=== PATIENT | female | born 1945 | race Caucasian/White ===

== ENCOUNTER 2017-10-01 05:30 | Day surgery (SDC) | payer OTHER, BC ==
[~2017-10-01] VITALS: Ht 160 cm; Wt 61.2 kg
--- NOTE | ~2017-10-01 | O ---
[facility] [place] [address] OPERATIVE REPORT Name: MANUEL MONET Room #: DEP [facility] M..#: [id number] Admission: 10/01/17 Attend Phys: Maverick Soto MD Discharge: 10/01/17 Date of : 45 Report #: [id number] THIS REPORT FOR: //name// CC: Dr. Kala Soto DATE OF SERVICE: 10/01/[address] Maverick Soto and Dr. Kala Aparicio at [facility] and Dr. Lakisha Albrecht. PREOPERATIVE DIAGNOSIS: Ductal carcinoma in situ of the right breast. POSTOPERATIVE DIAGNOSIS: Ductal carcinoma in situ of the right breast. PROCEDURE: Reexcision lumpectomy of right breast ductal carcinoma in situ. SURGEON: Maverick Soto M.D. ANESTHESIA: Local IV sedation. DESCRIPTION OF PROCEDURE: The patient was brought to the operating room and placed on operative table in the supine position. Sequential compression devices were in place for DVT prophylaxis. There was no indication for preoperative antibiotics. The patient underwent IV sedation and was prepped and draped in a sterile fashion. Skin and subcutaneous tissue around the right breast circumareolar skin incision was performed using 0.5% Marcaine and 1% Xylocaine in a 1:1 mixture. A skin incision was performed through the previous incision scar using #15 scalpel blade. Hemostasis obtained using electrocautery. Dissection was carried down through the subcutaneous tissue using the #15 blade knife and the Metzenbaum scissors. The area in question was carefully and completely dissected free around the previous lumpectomy site. Meticulous hemostasis was obtained using the electrocautery. The specimen was removed and oriented for the pathologist and given to the pathologist in the operating room for orientation and permanent study. The specimen was oriented with a double strand chromic suture being inferior, single strand chromic suture being medial and the nylon suture being anterior superficial. The specimen was placed in formalin and given to the pathologist in the operating room. Meticulous hemostasis was checked and obtained in the area using the electrocautery. Deep and superficial subcutaneous tissue was then reapproximated using simple interrupted 2-0 chromic sutures and the skin then closed with a running 4-0 subcuticular Vicryl stitch. The wound was then dressed with Mastisol, 1/2-inch Steri-Strips cut in half, Telfa, 4 x 4 gauze, sponge and tape. The patient was then awakened from the IV sedation, taken to [address] [address] OPERATIVE REPORT Name: MANUEL MONET Room #: DEP [facility] M.Colleen#: [id number] Admission: 10/01/17 Attend Phys: Maverick Soto MD Discharge: 10/01/17 Date of : 45 Report #: [id number] recovery room in good condition. Estimated blood loss was approximately 20 mL and the patient tolerated the procedure well. All sponge, lap and instrument counts correct x 2. <ELECTRONICALLY SIGNED> By: Maverick Soto MD 10/07/17 1545 [id number] 1703 Maverick Soto MD /nt
--- NOTE | ~2017-10-01 | S ---
[facility] [place] [address] SURGICAL PATH RPT PROCEDURE Name: UMM MONET Room #: DEP [facility] M.R.#: [id number] Admission: 10/01/17 Date of : 45 Discharge: 10/01/17 Report #: [id number] Path Case #: [id number] PATHOLOGY REPORT COLLECTION DATE: 10/01/2017 RECEIVED DATE: 10/01/2017 SUBMITTING PHYS: Dr. Maverick Soto OTHER PHYS: Dr. Kala Aparicio SPECIMEN(S) RECEIVED: A.R breast nylon ant/sup margin single med, double inf * * * * * * * * * * * * FINAL DIAGNOSIS: Breast, right breast, reexcision lumpectomy: - Extensive biopsy site changes identified. - Background of benign breast ducts with dilated ducts, usual ductal hyperplasia and focal columnar cell change. - Negative for atypia, carcinoma in situ or malignancy. - New margins of resection widely free. (IUV:rlm; 10/04/2017) PATHOLOGIST: Nelly Hawley M.D. REPORT ELECTRONICALLY SIGNED BY: Nelly Hawley M.D. DATE/TIME: 10/04/2017 15:10 * * * * * * * * * * * * GROSS PATHOLOGY: Received in formalin labeled "Umm Monet, right breast reexcision lumpectomy double strand inferior, nylon anterior superficial margin, single strand medial" is a 7 g oriented lumpectomy specimen which measures 2.7 cm from medial to lateral, 2.5 cm from superior to inferior, and 2.1 cm from anterior to posterior. The specimen is inked as follows: Superior-red, inferior-blue, anterior/superficial-green, posterior-black, medial-yellow, lateral-orange. The specimen is serially sectioned from lateral to medial into 8 slices to reveal a null-white diffusely fibrotic cut surface, possibly consistent with a previous biopsy or lumpectomy site. A definitive mass is not grossly identified. The specimen is submitted entirely as follows: A1 slice 1, medial margin, serially sectioned A2 slice 2 A3 slice 3 A4 slice 4 A5 slice 5 A6 slice 6 [address] [place] [address] SURGICAL PATH RPT PROCEDURE Name: UMM MONET Room #: DEP [facility]..#: [id number] Admission: 10/01/17 Date of : 45 Discharge: 10/01/17 Report #: [id number] Path Case #: [id number] A7 slice 7 A8 slice 8, lateral margin, serially sectioned The specimen is removed from the patient at 1435 and placed in formalin at 1438 on October 01, 2017. The specimen is removed from formalin at 1925 on October 03, 2017. [place] [place] CLINICAL HISTORY: Right breast cancer. INITIAL CPT CODE(S): A; 20389 Professional services performed by [facility] at [facility] [place] [address] [address] Technical services performed by [facility] at [address] [place] [address]., [address], [place] [address]. [facility] [address] [place] [address] PHONE: [phone] DIRECTOR: Justin Matthews M.D. * * * END OF REPORT * * *
[~2017-10-01 05:30] MED LIST: ASPIR 8181 MG PO; CLARITIN10 MG PO; CO Q-10100 MG PO; COZAAR 25 MG TA25 M2 PO; ESTRACE0.5 MG PO; FISH OIL 1,001000 M2 PO; LIPITOR10 MG PO; OMEPRAZOLE40 MG PO; SYNTHROID112 MCG PO; VITAMIN B-12500 MCG PO; VITAMINC500 PO
[2017-10-01 12:30] VITALS: BP 131/53
[2017-10-01 15:24] VITALS: BP 131/53
== END 2017-10-01 15:55 | disposition home or self-care (01) ==
LOC: TBA 05:30 → OR 05:30
DX: D24.1 Benign neoplasm of right breast (principal); I10 Essential (primary) hypertension; E78.5 Hyperlipidemia, unspecified; K21.9 Gastro-esophageal reflux disease without esophagitis; Z90.710 Acquired absence of both cervix and uterus; Z98.890 Other specified postprocedural states; E03.9 Hypothyroidism, unspecified
CPT/HCPCS: 50010; 50101; 50386; 50417; 56524; 56527; 56528; 62110; 62850; 70005

== ENCOUNTER → 2020-07-23 | Outpatient (CLI) | payer OTHER, BC | LOC: SJCVC 13:55 | PROVIDERS: ATTEND Internal Medicine | DX: R94.31 Abnormal electrocardiogram [ECG] [EKG] (principal); I44.7 Left bundle-branch block, unspecified; I10 Essential (primary) hypertension ==

== ENCOUNTER → 2020-07-29 | Outpatient (CLI) | payer OTHER, BC | LOC: SJCVCIMAG 11:00 | PROVIDERS: ATTEND Internal Medicine | DX: I08.8 Other rheumatic multiple valve diseases (principal); I10 Essential (primary) hypertension; E78.5 Hyperlipidemia, unspecified; Z79.82 Long term (current) use of aspirin; Z79.899 Other long term (current) drug therapy ==

== ENCOUNTER → 2021-04-21 | Outpatient (CLI) | payer OTHER, BC | LOC: SJCVC 10:56 | PROVIDERS: ATTEND Internal Medicine | DX: R94.31 Abnormal electrocardiogram [ECG] [EKG] (principal); I44.7 Left bundle-branch block, unspecified; E78.00 Pure hypercholesterolemia, unspecified; I10 Essential (primary) hypertension; R01.1 Cardiac murmur, unspecified; E78.5 Hyperlipidemia, unspecified; Z72.89 Other problems related to lifestyle; Z79.899 Other long term (current) drug therapy; Z88.0 Allergy status to penicillin ==

== ENCOUNTER → 2021-10-22 | Outpatient (CLI) | payer OTHER, BC | LOC: SJCVC 08:44 | PROVIDERS: ATTEND Internal Medicine | DX: R94.31 Abnormal electrocardiogram [ECG] [EKG] (principal); I44.7 Left bundle-branch block, unspecified; R03.0 Elevated blood-pressure reading, without diagnosis of hypertension; I25.10 Atherosclerotic heart disease of native coronary artery without angina pectoris; I65.29 Occlusion and stenosis of unspecified carotid artery; E78.00 Pure hypercholesterolemia, unspecified; I10 Essential (primary) hypertension; E78.5 Hyperlipidemia, unspecified; Z72.89 Other problems related to lifestyle; Z79.899 Other long term (current) drug therapy; Z88.0 Allergy status to penicillin; Z82.49 Family history of ischemic heart disease and other diseases of the circulatory system ==